=== PATIENT | female | born 1935 | race Caucasian/White ===

== ENCOUNTER 2022-12-12 13:10 | Emergency (ER) | payer BC, MEDICAID ==
[~2022-12-12] VITALS: Ht 157.5 cm; Wt 64.0 kg
[2022-12-12 16:04] LABS: BASOPHILS % 0.8 % (0.0-2.0); CHLORIDE 104 mEq/L (98-107); EOSINOPHILS % 2.3 % (0.0-5.0); HEMATOCRIT. 32.4 % (36.0-48.0); HEMOGLOBIN. 10.6 g/dL (12.0-16.0); LYMPHOCYTES % 29.1 % (20.0-50.0); MEAN CORPUSCULAR HEMOGLOBIN 26.8 pg (28.0-32.0); MEAN CORPUSCULAR VOLUME 81.7 fL (81.0-99.0); MEAN PLATELET VOLUME 6.7 fl (7.4-10.4); MONOCYTES % 5.8 % (2.0-8.0); PLATELET 437 x1000/uL (130-400); RED BLOOD CELL COUNT 3.96 mill/uL (4.2-5.4); RED CELL DISTRIBUTION WIDTH 16.3 % (11.6-14.6)
[2022-12-12 16:09] LABS: PROTHROMBIN TIME 10.4 sec (9.6-11.0)
[2022-12-12] MEDS ORDERED: IOHEXOL-300 100 ML BOTTLE ONE (22:51)
[2022-12-13 02:59] VITALS: BP 131/81
== END 2022-12-13 03:01 | disposition home or self-care (01) ==
LOC: ER 13:49
DX: R00.2 Palpitations (principal); I10 Essential (primary) hypertension; F41.9 Anxiety disorder, unspecified; E78.00 Pure hypercholesterolemia, unspecified
CPT/HCPCS: 36415; 71045; 71275; 80053; 83880; 84484; 85025; 85379; 85610; 93005; 99285; Q9967